=== PATIENT | male | born 1965 | race Caucasian/White ===

== ENCOUNTER → 2017-12-31 12:31 | Outpatient (CLI) | payer OTHER, SELFPAY ==
--- NOTE | 2017-12-31 | DI.ECHO.S_ITS ---
[facility]---------+ [facility] +---------+ : : [address] : [place] [address] : : : : [id number] : : : : Phone: [phone]+ Echocardiogram Report + + :Name: DANYEL ÁLVAREZ Study Date: 12/31/2017 Height: 71 in : :[facility] Exam Location: [facility] Weight: 215 lb : : Gender: Male BSA: 2.2 m2 : :: 1965 Age: 52 yrs BP: 150/82 mmHg: :Reason For Study: PALPITATIONS : : Performed By: Arash Heller : :Referring: FORD SHARP : + + Interpretation Summary The ejection fraction is estimated to be 60-65%. There are no focal wall motion abnormalities. There is no significant valvular heart disease. Procedure: A two-dimensional transthoracic echocardiogram with color flow and Doppler was performed. The study quality was technically adequate. There is no prior echocardiogram noted for this patient. The subcostal views were difficult to obtain and are suboptimal in quality. The patient was in normal sinus rhythm during the exam. Left Ventricle: The left ventricle is normal in size. There is normal left ventricular wall thickness. The ejection fraction is estimated to be 60-65%. There are no focal wall motion abnormalities. Right Ventricle: The right ventricle is normal in size and function. Atria: Both atria are normal in size. The interatrial septum is intact with no evidence for an atrial septal defect. Mitral Valve: The mitral valve is normal in structure and function. There is trace mitral regurgitation. Aortic Valve: The aortic valve is normal in structure and function. The aortic valve is trileaflet. The aortic valve opens well. No aortic regurgitation is present. Tricuspid Valve: The tricuspid valve is normal in structure and function. There is a trace or physiologic amount of tricuspid regurgitation. Pulmonary artery pressures cannot be estimated because of the lack of a measurable TR jet velocity. Pulmonic Valve: The pulmonic valve is normal in structure and function. There is no pulmonic valvular regurgitation. Great Vessels: The aortic root is normal size. The dimensions of the ascending aorta are normal. The pulmonary artery is normal size. The inferior vena cava was not well visualized. Pericardium/ Pleura There is no pericardial effusion. There is no pleural effusion. MMode/2D Measurements & Calculations LVIDd: 4.3 cm Ao root diam: 3.1 cm LVIDs: 2.7 cm Aortic Jxn: 2.4 cm FS: 37.2 % asc Aorta Diam: 3.1 cm EPSS: 0.31 cm Ao Arch Diam (Prox Trans): 2.4 cm IVSd: 0.97 cm LVPWd: 0.97 cm LV montano. diameter/BSA (cm/m^2): 2.0 LV sys. diameter/BSA (cm/m^2): 1.2 LA dimension: 2.9 cm RA long axis: 4.9 cm LA A2 area: 16.7 cm2 RA area: 18.0 cm2 LA A4 area: 18.3 cm2 RA vol: 55.8 ml LA length (vol): 5.7 cm RA : 25.7 ml/m2 LA vol: 45.7 ml LA vol index: 21.0 ml/m2 Doppler Measurements & Calculations Ao V2 max: 132.6 cm/sec LVOT Max Jack: 116.8 cm/sec Ao V2 mean: 99.9 cm/sec LV V1 max P.5 mmHg Ao max P.0 mmHg LV V1 VTI: 21.4 cm Ao mean P.3 mmHg sev ratio: 0.90 Ao V2 VTI: 23.8 cm MV E max jack: 97.5 cm/sec PA V2 max: 128.1 cm/sec MV A max jack: 84.3 cm/sec PA V2 mean: 95.5 cm/sec MV E/A: 1.2 PA mean P.9 mmHg Med Peak E' Jack: 5.2 cm/sec PA pr(Accel): 36.6 mmHg E/E' med: 18.9 PA Accel Time: 0.08 sec Lat Peak E' Jack: 5.8 cm/sec E/E' lat: 16.9 E/e' average: 17.9 MV dec time: 0.16 sec Pulm A Revs Jack: 27.8 cm/sec Reading Physician:05:[id number] PM
== END ==
PROVIDERS: Visit Provider Physician Assistant
DX: R00.2 Palpitations (principal)
CPT/HCPCS: 93306

== ENCOUNTER → 2024-04-30 07:39 | Outpatient (CLI) | payer OTHER, SELFPAY ==
--- NOTE | 2024-04-30 07:41 | DI.ECHO.S_ITS ---
[facility]---------+ [facility] : : [address] : : [place] : : [id number] : : Phone: [phone] Echocardiogram Report + + :Name: DANYEL ÁLVAREZ Study Date: 04/30/2024 Height: 70.5 in: :[facility] ReadingLocation: Weight: 245 lb : : Gender: Male BSA: 2.3 m2 : :: 1965 Age: 58 yrs BP: 137/95 mmHg: :Reason For Study: ISCHEMIC HEART DISEASE : :Ordering Physician: MICHAEL HOLT Performed By: Nhung Clinton : :Referring: MICHAEL HOLT : + + Interpretation Summary 1. Normal LV contractility with EF > 60%. No WMA. No LVH. Unable to comment on diastolic function. 2. Normal RV contractility. 3. Normal chamber sizes. 4. No significant valvular abnormalities. 5. No obvious intracardiac shunts. 6. No obvious intracardiac masses/thrombi. 7. No hemodynamically significant pericardial effusion. Conclusion: Normal biventricular systolic function without significant valvular abnormalities. No significant changes when compared to previous study. Procedure: A two-dimensional transthoracic echocardiogram with color flow and Doppler was performed. The study quality was technically adequate. Comparison is made with the echocardiogram of 12/31/2017. The patient was in sinus rhythm with heart rates between 77-82 bpm during the exam. Left Ventricle: The left ventricle is normal in size. There is normal left ventricular wall thickness. The ejection fraction is estimated to be 60-65%. Right Ventricle: The right ventricle is normal in size and function. Atria: The left atrial size is normal. Right atrial size is normal. There is no Doppler evidence for an interatrial shunt. Mitral Valve: The mitral valve leaflets appear to open well. There is no mitral regurgitation noted. Aortic Valve: The aortic valve is trileaflet. The aortic valve opens well. There is no aortic valve stenosis. No aortic regurgitation is present. Tricuspid Valve: The tricuspid valve leaflets are thin and pliable. There is trace tricuspid regurgitation. Pulmonary artery pressures cannot be estimated because of the lack of a measurable TR jet velocity. Pulmonic Valve: The pulmonic valve leaflets are thin and pliable; valve motion is normal. There is no pulmonic valvular regurgitation. Great Vessels: The aortic root is normal size. The dimensions of the ascending aorta are normal. The inferior vena cava was not visualized. Pericardium/ Pleura There is no pericardial effusion. There is no pleural effusion. MMode/2D Measurements & Calculations LVIDd: 3.7 cm LVOT diam: 2.0 cm LVIDs: 2.5 cm Ao root diam: 3.2 cm FS: 32.6 % asc Aorta Diam: 3.0 cm EPSS: 0.52 cm Ao Arch Diam (Prox Trans): 2.6 cm IVSd: 1.0 cm LVPWd: 0.87 cm LV montano. diameter/BSA (cm/m^2): 1.6 LV sys. diameter/BSA (cm/m^2): 1.1 LA A2 area: 16.1 cm2 RA long axis: 5.0 cm LA A4 area: 14.3 cm2 RA area: 13.9 cm2 LA length (vol): 5.1 cm RA vol: 32.4 ml LA vol: 38.1 ml RA : 14.2 ml/m2 LA vol index: 16.7 ml/m2 RVD1 (basal): 3.7 cm RVD2 (mid): 2.5 cm TAPSE: 1.7 cm Doppler Measurements & Calculations Ao V2 max: 124.4 cm/sec LVOT Max Jack: 109.8 cm/sec Ao V2 mean: 83.7 cm/sec LV V1 max P.8 mmHg Ao max P.2 mmHg LV V1 VTI: 19.8 cm Ao mean P.2 mmHg IVETTE(I,D): 2.8 cm2 Ao V2 VTI: 22.2 cm IVETTE(V,D): 2.8 cm2 sev ratio: 0.89 IVETTE indexed to BSA (cm^2/m^2): 1.2 MV E max jack: 57.3 cm/sec PA V2 max: 134.7 cm/sec MV A max jack: 52.8 cm/sec PA V2 mean: 89.1 cm/sec MV E/A: 1.1 PA mean P.6 mmHg Med Peak E' Jack: 6.6 cm/sec PA pr(Accel): 46.9 mmHg E/E' med: 8.7 Lat Peak E' Jack: 8.4 cm/sec E/E' lat: 6.8 E/e' average: 7.8 MV dec time: 0.18 sec MVA(VTI): 3.0 cm2 MV V2 mean: 46.0 cm/sec SV(LVOT): 62.5 ml MV mean P.95 mmHg MV V2 VTI: 21.2 cm Reading Physician:
--- NOTE | 2024-04-30 07:41 | DI.NM.S_ITS ---
PROCEDURE: NM EXERCISE TREADMILL NON NUC COMPARISON: None. INDICATIONS: FAM HX ISCHEMIC HEART DISEASE / PAC FINDINGS: The patient exercised for 8 minutes and 31 seconds reaching 88% of maximum predicted heart rate. Fair exercise tolerance (ANUPAM +9%). Hypertensive response to exercise (resting BP 118/92mmHg, max BP 235/100mmHg). No diagnostic ST changes and no angina during the study. No ectopy present. IMPRESSION: Low risk, normal treadmill ECG only stress test from inducible ischemia standpoint. Fair exercise tolerance (ANUPAM +9%). Hypertensive response to exercise (resting BP 118/92mmHg, max BP 235/100mmHg). Dictated by: Esperanza Carlos MD on 04/30/2024 at 16:32 Approved by: Esperanza Carlos MD on 04/30/2024 at 16:35
== END ==
PROVIDERS: Referring Provider Internal Medicine; Visit Provider Internal Medicine
DX: I49.1 Atrial premature depolarization (principal); Z82.49 Family history of ischemic heart disease and other diseases of the circulatory system
CPT/HCPCS: 93017; 93306